=== PATIENT | male | born 1990 | race African-American/Black ===

== ENCOUNTER 2018-08-19 18:23 | Emergency (ER) | payer SELFPAY ==
[~2018-08-19] VITALS: Ht 167.6 cm; Wt 90.7 kg
[2018-08-19 18:34] VITALS: BP 132/65
--- NOTE | 2018-08-19 18:37 | PHYS DOC ---
Past Medical History Past Medical History: Asthma Past Surgical History: No Surgical History Alcohol Use: None Drug Use: None Adult General Chief Complaint Chief Complaint: ASTHMA HPI HPI Patient is a 27 year old male who presents with asthma exacerbation. Patient has had worsening symptoms over the last 48 hours. He describes some dyspnea which she states is typical for his asthma symptoms. He does not have any of his normal albuterol solution at home because he is out of the medication. He presents to the ER with worsening symptoms today. Patient has never been intubated or admitted for his asthma. Denies fever or chills. No myalgias. He does have a cough which she describes to be dry. Review of Systems Review of Systems Constitutional: Denies fever Eyes: Denies change in visual acuity HENT: Denies nasal congestion Respiratory: as documented above GI: Denies abdominal pain, nausea, vomiting, bloody stools : Denies dysuria or hematuria Musculoskeletal: Denies back pain Integument: Denies rash or skin lesions Neurologic: Denies headache, focal weakness or sensory changes Endocrine: Denies polyuria All other systems were reviewed and found to be within normal limits, except as documented in this note. Current Medications Current Medications Current Medications Medications (Trade) Dose Ordered Sig/Dom Start Time Stop Time Status Last Admin Dose Admin Albuterol Sulfate (Ventolin Neb Soln) 2.5 mg 1X ONCE 08/19/18 19:30 08/19/18 19:31 DC 08/19/18 19:34 2.5 MG Albuterol/ Ipratropium (Duoneb) 3 ml 1X ONCE 08/19/18 18:45 08/19/18 18:46 DC 08/19/18 18:49 3 ML Prednisone (Prednisone) 50 mg 1X ONCE 08/19/18 18:45 08/19/18 18:46 DC 08/19/18 18:53 50 MG Allergies Allergies Allergies Coded Allergies Type Severity Reaction Last Updated Verified No Known Drug Allergies 05/31/14 No Physical Exam Physical Exam Constitutional: Well developed, well nourished, no acute distress HENT: Normocephalic, atraumatic, bilateral external ears normal, oropharynx moist Eyes: PERRLA, EOMI, conjunctiva normal Neck: Normal range of motion Cardiovascular:Heart rate regular rhythm, no murmur Lungs & Thorax: Scattered wheezes bilaterally with prolonged expiratory phase. No acute dyspnea. Abdomen: Bowel sounds normal, soft, no tenderness Skin: Warm, dry, no erythema, no rash Neurologic: Alert and oriented X 3 Current Patient Data Vital Signs Vital Signs Date Time Temp Pulse Resp B/P (MAP) Pulse Ox O2 Delivery O2 Flow Rate FiO2 08/19/18 19:34 Room Air 08/19/18 18:50 97 08/19/18 18:34 98.9 107 20 132/65 (87) 98.9 EKG EKG [] Radiology/Procedures Radiology/Procedures [] Course & Med Decision Making Course & Med Decision Making Pertinent Labs and Imaging studies reviewed. (See chart for details) 18:35: Patient seen and examined. Nebulized duoneb and prednisone ordered. 19:42: Patient was given 2 albuterol nebulized treatments in the ER. His lungs are currently clear. He is discharged home with a refill of his albuterol nebulized solution as well as a 5 day course of prednisone. Patient is advised to come back to the ER for any new or worsening symptoms. Dragon Disclaimer Dragon Disclaimer This electronic medical record was generated, in whole or in part, using a voice recognition dictation system. Departure Departure Disposition: HOME, SELF-CARE Condition: GOOD Referrals: NO PCP (PCP) Scripts Albuterol Sulfate (ALBUTEROL SULFATE NEB SOLN) 2.5 Mg/3 Ml Vial.neb 1 VIAL NEB PRN Q4HRS, #50 VIAL Prov: MAR WILLIS DO 08/19/18 Prednisone (PREDNISONE) 50 Mg Tablet 1 TAB PO DAILY, #5 TAB Prov: MAR WILLIS DO 08/19/18 MAR WILLIS DO Aug 19, 2018 18:37
[2018-08-19] MEDS ORDERED: predniSONE 10 MG TABLET PO ONE (18:45)
[2018-08-19] MEDS ORDERED: IPRATRPIUM/ALBUTEROL 0.5/2.5MG 3 ML NEBU. NEB ONE (18:45)
[2018-08-19] MEDS ORDERED: ALBU2.5V5 NEB (19:28)
[2018-08-19] MEDS ORDERED: PRED50TA PO (19:28)
[2018-08-19] MEDS ORDERED: ALBUTEROL SULFATE 2.5 MG/3 ML NEBU. NEB ONE (19:30)
== END 2018-08-19 19:44 | disposition home or self-care (01) ==
LOC: ER 18:23
DX: J45.901 Unspecified asthma with (acute) exacerbation (principal)
CPT/HCPCS: 94640; 99284; J7512; J7613; J7620

== ENCOUNTER 2019-07-14 08:44 | Emergency (ER) | payer BC ==
[~2019-07-14] VITALS: Ht 167.6 cm; Wt 93.0 kg
[~2019-07-14 08:44] MED LIST: ALBU2.5V5 NEB; PRED50TA PO
[2019-07-14 08:57] VITALS: BP 142/72
[2019-07-14] MEDS ORDERED: ALBUTEROL SULFATE 2.5 MG/3 ML NEBU. ONE (09:22)
[2019-07-14] MEDS ORDERED: IPRATRPIUM/ALBUTEROL 0.5/2.5MG 3 ML NEBU. ONE (09:22)
[2019-07-14] MEDS ORDERED: METH4TAB2 PO (09:36)
[2019-07-14] MEDS ORDERED: BENZ100C PO (09:36)
[2019-07-14] MEDS ORDERED: ALBU2.5V5 NEB (09:36)
[2019-07-14] MEDS ORDERED: ALBU2.5V8 IH (09:36)
[2019-07-14] MEDS ORDERED: AZIT250T PO (09:36)
--- NOTE | 2019-07-14 09:36 | PHYS DOC ---
Past Medical History Past Medical History: Asthma Past Surgical History: No Surgical History Alcohol Use: None Drug Use: None Adult General Chief Complaint Chief Complaint: ASTHMA HPI HPI Patient is a 28 year old male patient with history of asthma who presents with complaining of cough and shortness of breath. Patient states he has had intermittent episodes of cough and shortness of breath for the last 2 weeks with improvement of his symptoms with taking her home inhaler but for the last 2 days he ran out of his inhaler and his shortness of breath getting worse. Patient denies fever and chills, productive cough, chest pain, myalgia. Review of Systems Review of Systems Constitutional: Denies fever or chills [] Eyes: Denies change in visual acuity, redness, or eye pain [] HENT: Denies nasal congestion or sore throat [] Respiratory: Reports cough and shortness of Cardiovascular: No additional information not addressed in HPI [] GI: Denies abdominal pain, nausea, vomiting, bloody stools or diarrhea [] : Denies dysuria or hematuria [] Musculoskeletal: Denies back pain or joint pain [] Integument: Denies rash or skin lesions [] Neurologic: Denies headache, focal weakness or sensory changes [] Endocrine: Denies polyuria or polydipsia [] All other systems were reviewed and found to be within normal limits, except as documented in this note. Current Medications Current Medications Current Medications Medications (Trade) Dose Ordered Sig/Dom Start Time Stop Time Status Last Admin Dose Admin Albuterol Sulfate (Ventolin Neb Soln) 2.5 mg STK-MED ONCE 07/14/19 09:22 07/14/19 09:22 DC Albuterol/ Ipratropium (Duoneb) 3 ml STK-MED ONCE 07/14/19 09:22 07/14/19 09:22 DC Allergies Allergies Allergies Coded Allergies Type Severity Reaction Last Updated Verified No Known Drug Allergies 05/31/14 No Physical Exam Physical Exam Constitutional: Well developed, well nourished, no acute distress, non-toxic appearance. [] HENT: Normocephalic, atraumatic, bilateral external ears normal, oropharynx moist, no oral exudates, nose normal. [] Eyes: PERRLA, EOMI, conjunctiva normal, no discharge. [] Neck: Normal range of motion, no tenderness, supple, no stridor. [] Cardiovascular:Heart rate regular rhythm, no murmur [] Lungs & Thorax: Bilateral breath sounds clear to auscultation [] Abdomen: Bowel sounds normal, soft, no tenderness, no masses, no pulsatile masses. [] Skin: Warm, dry, no erythema, no rash. [] Back: No tenderness, no CVA tenderness. [] Extremities: No tenderness, no cyanosis, no clubbing, ROM intact, no edema. [] Neurologic: Alert and oriented X 3, normal motor function, normal sensory function, no focal deficits noted. [] Psychologic: Affect normal, judgement normal, mood normal. [] Current Patient Data Vital Signs Vital Signs Date Time Temp Pulse Resp B/P (MAP) Pulse Ox O2 Delivery O2 Flow Rate FiO2 07/14/19 10:09 92 18 99 Room Air 07/14/19 08:57 98.7 142/72 (95) 98.7 EKG EKG [] Radiology/Procedures Radiology/Procedures [] Course & Med Decision Making Course & Med Decision Making Evaluation of patient in ER showed 28-year-old male patient with history of asthma and currently smoking and complaining of episodes of shortness of breath and cough for 2 weeks that getting worse after he ran out of his inhaler. Patient had unremarkable physical exam. Plan discharge patient home to diagnose of asthma attack and refill of his medication and Medrol Dosepak. Dragon Disclaimer Dragon Disclaimer This electronic medical record was generated, in whole or in part, using a voice recognition dictation system. Departure Departure Impression: Primary Impression: Asthma attack Disposition: HOME, SELF-CARE (At 0933) Condition: IMPROVED Referrals: NO PCP (PCP) Patient Instructions: Asthma, Adult, Smoking Cessation, Tips For Success Additional Instructions: Drink plenty of liquids Follow-up with your primary care physician in 3-5 days Return to ER if not getting better Scripts Azithromycin (ZITHROMAX) 250 Mg Tablet 250 MG PO DAILY for ANTI-BIOTIC, #6 TAB 0 Refills Take 2 pills by mouth for the first day and then Take 1 pill by mouth every 24 hours for the next 4 days Prov: THEO KELLEY MD 07/14/19 Benzonatate (TESSALON PERLE) 100 Mg Capsule 1 CAP PO TID for cough, #21 CAP Prov: THEO KELLEY MD 07/14/19 Albuterol Sulfate (PROAIR HFA INHALER) 8.5 Gm Hfa.aer.ad 2 PUFF IH PRN Q4-6HRS PRN for wheezing for 21 Days, #1 INHALER 0 Refills Prov: THEO KELLEY MD 07/14/19 Methylprednisolone (MEDROL) 4 Mg Tab.ds.pk 1 PKG PO UD for inflammation, #1 PKG Prov: THEO KELLEY MD 07/14/19 Albuterol Sulfate (ALBUTEROL SULFATE NEB SOLN) 2.5 Mg/3 Ml Vial.neb 1 VIAL NEB Q6HRS PRN for SHORTNESS OF BREATH, #25 VIAL Prov: THEO KELLEY MD 07/14/19 Problem Qualifiers Primary Impression: Asthma attack Asthma severity: mild Asthma persistence: unspecified Qualified Codes: J45.901 - Unspecified asthma with (acute) exacerbation THEO KELLEY MD Jul 14, 2019 09:36
== END 2019-07-14 10:09 | disposition home or self-care (01) ==
LOC: ER 08:44
DX: J45.901 Unspecified asthma with (acute) exacerbation (principal)
CPT/HCPCS: 94640; 99283

== ENCOUNTER 2019-07-31 08:37 | Emergency (ER) | payer BC ==
[~2019-07-31] VITALS: Ht 170.2 cm; Wt 93.0 kg
[~2019-07-31 08:37] MED LIST changes: +ALBU2.5V8 IH; +AZIT250T PO; +BENZ100C PO; +METH4TAB2 PO
[2019-07-31] MEDS ORDERED: IV NORMAL SALINE 1000ML BAG 1,000 ML IV ONE (09:00)
[2019-07-31] MEDS ORDERED: methylPREDNISolone SOD SUCC PF 125 MG/2 ML VIAL. IV ONE (09:00)
[2019-07-31] MEDS ORDERED: ONDANSETRON PF 4 MG/2 ML VIAL. IVP ONE (09:00)
[2019-07-31] MEDS ORDERED: MORPHINE SULFATE 10 MG/ML VIAL. IV ONE (09:00)
--- NOTE | 2019-07-31 09:04 | PHYS DOC ---
Past Medical History Past Medical History: Asthma Past Surgical History: No Surgical History Alcohol Use: None Drug Use: None Adult General Chief Complaint Chief Complaint: SHORTNESS OF BREATH HPI HPI Patient is a 28 year old male with history of asthma who presents with flulike symptoms with sore throat, fever, sore body aches starting yesterday and shortness of breath with wheezing starting last evening. Patient is required inhaler use. Reports dyspnea with exertion. No chest pain. Chest tightness. No other acute symptoms or complaints.[] Review of Systems Review of Systems Review of symptoms as per history of present illness. All other review symptoms are negative. All other systems were reviewed and found to be within normal limits, except as documented in this note. Current Medications Current Medications Current Medications Medications (Trade) Dose Ordered Sig/Dom Start Time Stop Time Status Last Admin Dose Admin Albuterol/ Ipratropium (Duoneb) 3 ml 1X ONCE 07/31/19 10:15 07/31/19 10:16 DC 07/31/19 10:13 3 ML Methylprednisolone Sodium Succinate (SOLU-Medrol 125MG VIAL) 125 mg 1X ONCE 07/31/19 09:00 07/31/19 09:01 DC 07/31/19 09:33 125 MG Morphine Sulfate (Morphine Sulfate) 5 mg 1X ONCE 07/31/19 09:00 07/31/19 09:01 DC 07/31/19 09:34 5 MG Ondansetron HCl (Zofran) 4 mg 1X ONCE 07/31/19 09:00 07/31/19 09:01 DC 07/31/19 09:32 4 MG Sodium Chloride 1,000 ml @ 1,000 mls/hr 1X ONCE 07/31/19 09:00 07/31/19 09:59 DC 07/31/19 09:27 1,000 MLS/HR Allergies Allergies Allergies Coded Allergies Type Severity Reaction Last Updated Verified No Known Drug Allergies 05/31/14 No Physical Exam Physical Exam Constitutional: Acutely ill appearing, appears uncomfortable.[] HENT: Normocephalic, atraumatic, bilateral external ears normal, oropharynx moist, no oral exudates, nose normal. [] Eyes: PERRLA, EOMI, conjunctiva normal, no discharge. [] Neck: Normal range of motion, no tenderness, supple, tears cervical lymphadenopathy, no meningismus..[] Cardiovascular: Tachycardia. No rhythm[] Lungs & Thorax: Respirations nonlabored, diminished breath sounds bilaterally with faint inspiratory and expiratory wheezes.[] Abdomen: Bowel sounds normal, soft, no tenderness. [] Skin: Appropriate for ethnicity, warm to touch, no rash appreciated[] Back: No tenderness, no CVA tenderness. [] Extremities: No tenderness. [] Neurologic: Alert and oriented X 3, normal motor function, normal sensory function, no focal deficits noted. [] Psychologic: Affect normal, judgement normal, mood normal. [] Current Patient Data Vital Signs Vital Signs Date Time Temp Pulse Resp B/P (MAP) Pulse Ox O2 Delivery O2 Flow Rate FiO2 07/31/19 10:14 96 Room Air 07/31/19 10:04 20 07/31/19 08:42 102.3 103 129/80 (96) 102.3 Lab Values Laboratory Tests Test 07/31/19 08:45 07/31/19 09:20 Influenza Type A Antigen Positive (NEGATIVE) Influenza Type B Antigen Negative (NEGATIVE) White Blood Count 4.7 x10^3/uL (4.0-11.0) Red Blood Count 4.71 x10^6/uL (4.30-5.70) Hemoglobin 13.4 g/dL (13.0-17.5) Hematocrit 40.6 % (39.0-53.0) Mean Corpuscular Volume 86 fL (79-100) Mean Corpuscular Hemoglobin 28 pg (25-35) Mean Corpuscular Hemoglobin Concent 33 g/dL (31-37) Red Cell Distribution Width 13.5 % (11.5-14.5) Platelet Count 275 x10^3/uL (140-400) Neutrophils (%) (Auto) 72 % (31-73) Lymphocytes (%) (Auto) 6 % (24-48) L Monocytes (%) (Auto) 22 % (0-9) H Eosinophils (%) (Auto) 0 % (0-3) Basophils (%) (Auto) 0 % (0-3) Neutrophils # (Auto) 3.4 x10^3/uL (1.8-7.7) Lymphocytes # (Auto) 0.3 x10^3/uL (1.0-4.8) L Monocytes # (Auto) 1.0 x10^3/uL (0.0-1.1) Eosinophils # (Auto) 0.0 x10^3/uL (0.0-0.7) Basophils # (Auto) 0.0 x10^3/uL (0.0-0.2) Platelet Estimate Pending Sodium Level 139 mmol/L (136-145) Potassium Level 3.2 mmol/L (3.5-5.1) L Chloride Level 100 mmol/L (98-107) Carbon Dioxide Level 24 mmol/L (21-32) Anion Gap 15 (6-14) H Blood Urea Nitrogen 8 mg/dL (8-26) Creatinine 1.1 mg/dL (0.7-1.3) Estimated GFR (Cockcroft-Gault) 97.2 BUN/Creatinine Ratio 7 (6-20) Glucose Level 113 mg/dL (70-99) H Calcium Level 8.9 mg/dL (8.5-10.1) Total Bilirubin 0.3 mg/dL (0.2-1.0) Aspartate Amino Transferase (AST) 20 U/L (15-37) Alanine Aminotransferase (ALT) 14 U/L (16-63) L Alkaline Phosphatase 57 U/L (46-116) Total Protein 7.5 g/dL (6.4-8.2) Albumin 3.6 g/dL (3.4-5.0) Albumin/Globulin Ratio 0.9 (1.0-1.7) L Laboratory Tests 07/31/19 09:20 Laboratory Tests 07/31/19 09:20 EKG EKG [] Radiology/Procedures Radiology/Procedures [Chest x-ray: No acute cardiopulmonary disease per radiology report] Course & Med Decision Making Course & Med Decision Making Pertinent Labs and Imaging studies reviewed. (See chart for details) [Flulike illness with mild intermittent asthma exacerbation. Fluids, morphine, steroids and breathing treatment given.] Dragon Disclaimer Dragon Disclaimer This electronic medical record was generated, in whole or in part, using a voice recognition dictation system. Departure Departure Impression: Primary Impression: Influenza A Disposition: 01 HOME, SELF-CARE Condition: IMPROVED Referrals: NO PCP (PCP) Scripts Oseltamivir Phosphate (TAMIFLU) 75 Mg Capsule 1 CAP PO BID, #10 CAP Prov: MARILYN FAROOQ DO 07/31/19 Prednisone (PREDNISONE) 50 Mg Tablet 1 TAB PO DAILY, #5 TAB Prov: MARILYN FAROOQ DO 07/31/19 Albuterol Sulfate (PROAIR HFA INHALER) 8.5 Gm Hfa.aer.ad 2 PUFF IH PRN Q4-6HRS PRN for wheezing for 21 Days, #1 INHALER 0 Refills Prov: MARILYN FAROOQ DO 07/31/19 MARILYN FAROOQ DO Jul 31, 2019 09:04
[2019-07-31 09:21] LABS: INFLUENZA A PATIENT POSITIVE (NEGATIVE); INFLUENZA B PATIENT NEGATIVE (NEGATIVE)
--- NOTE | 2019-07-31 09:23 | RAD ---
EXAM: Chest, single view. HISTORY: Shortness of air. COMPARISON: None. FINDINGS: A frontal view of the chest is obtained. There is no infiltrate, pleural effusion or pneumothorax. The heart is normal in size. IMPRESSION: No acute pulmonary finding. Electronically signed by: Gracie Guerrero MD (07/31/2019 9:20 AM) [facility]
[2019-07-31 09:46] LABS: BASO % 0 % (0-3); EOS % 0 % (0-3); HEMATOCRIT 40.6 % (39.0-53.0); HEMOGLOBIN 13.4 g/dL (13.0-17.5); LYMPH # 0.3 x10^3/uL (1.0-4.8); LYMPH % 6 % (24-48); MEAN CORPUSCULAR HEMOGLOBIN 28 pg (25-35); MEAN CORPUSCULAR HGB CONC 33 g/dL (31-37); MEAN CORPUSCULAR VOLUME 86 fL (79-100); MONO % 22 % (0-9); NEUT # 3.4 x10^3/uL (1.8-7.7); NEUT % 72 % (31-73); PLATELET COUNT 275 x10^3/uL (140-400); RED BLOOD COUNT 4.71 x10^6/uL (4.30-5.70); RED CELL DISTRIBUTION WIDTH 13.5 % (11.5-14.5); WHITE BLOOD COUNT 4.7 x10^3/uL (4.0-11.0)
[2019-07-31 09:53] LABS: CALCIUM 8.9 mg/dL (8.5-10.1); CREATININE 1.1 mg/dL (0.7-1.3); GFR 97.2; POTASSIUM 3.2 mmol/L (3.5-5.1)
[2019-07-31 09:59] LABS: ALBUMIN 3.6 g/dL (3.4-5.0); ALBUMIN/GLOBULIN RATIO 0.9 (1.0-1.7); TOTAL BILIRUBIN 0.3 mg/dL (0.2-1.0); TOTAL PROTEIN 7.5 g/dL (6.4-8.2)
[2019-07-31] MEDS ORDERED: ALBU2.5V8 IH (10:12)
[2019-07-31] MEDS ORDERED: PROM5SYR2 PO (10:12)
[2019-07-31] MEDS ORDERED: PRED50TA PO (10:12)
[2019-07-31] MEDS ORDERED: OSEL75CA PO (10:12)
[2019-07-31] MEDS ORDERED: IPRATRPIUM/ALBUTEROL 0.5/2.5MG 3 ML NEBU. NEB ONE (10:15)
[2019-07-31 10:44] VITALS: BP 131/67
[2019-07-31 11:19] LABS: % BANDS 3 % (0-9); % LYMPHS 7 % (24-48); % MONOS 18 % (0-10); % SEGS 72 % (35-66); PLT ESTIMATE ADEQUATE (ADEQUATE)
== END 2019-07-31 11:48 | disposition home or self-care (01) ==
LOC: ER 08:37
DX: J10.1 Influenza due to other identified influenza virus with other respiratory manifestations (principal); R50.9 Fever, unspecified; R06.00 Dyspnea, unspecified; R06.02 Shortness of breath; J45.909 Unspecified asthma, uncomplicated; Z79.899 Other long term (current) drug therapy
CPT/HCPCS: 36415; 71045; 80053; 85007; 85025; 87804; 94640; 96374; 96375; 99285; J2270; J2405; J2930; J7030; J7620

== ENCOUNTER 2020-02-08 08:32 | Emergency (ER) | payer BC ==
[~2020-02-08] VITALS: Ht 170.2 cm; Wt 94.0 kg
[~2020-02-08 08:32] MED LIST changes: +OSEL75CA PO; +PROM5SYR2 PO
[2020-02-08 08:45] VITALS: BP 148/63
[2020-02-08] MEDS ORDERED: IPRATRPIUM/ALBUTEROL 0.5/2.5MG 3 ML NEBU. NEB ONE (08:45)
[2020-02-08] MEDS ORDERED: methylPREDNISolone SOD SUCC PF 125 MG/2 ML VIAL. IM ONE (08:45)
[2020-02-08] MEDS ORDERED: PRED20TA PO (08:49)
--- NOTE | 2020-02-08 08:50 | PHYS DOC ---
Past Medical History Past Medical History: Asthma Past Surgical History: No Surgical History Smoking Status: Light Tobacco Smoker Alcohol Use: None Drug Use: None General Adult EDM: Chief Complaint: ASTHMA HPI: HPI: Patient is a 29 year old male presenting to the ED with a chief complaint of asthma exacerbation. Patient states that the symptoms are not present for the last 2 days. Patient states that he has been using breathing treatments at home but does not seem to help. Patient denies being an active smoker. Patient denies fever, chills, nausea, vomiting, chest pain. Patient states that since he cannot take the breathing treatments to work he has some difficulty in breathing. Review of Systems: Review of Systems: Constitutional: Denies fever or chills. [] Eyes: Denies change in visual acuity. [] HENT: Denies nasal congestion or sore throat. [] Respiratory: Complains of wheezing and shortness of breath [] Cardiovascular: Denies chest pain or edema. [] GI: Denies abdominal pain, nausea, vomiting, bloody stools or diarrhea. [] Heart Score: Risk Factors: Risk Factors: DM, Current or recent (<one month) smoker, HTN, HLP, family history of CAD, obesity. Risk Scores: Score 0 - 3: 2.5% MACE over next 6 weeks - Discharge Home Score 4 - 6: 20.3% MACE over next 6 weeks - Admit for Clinical Observation Score 7 - 10: 72.7% MACE over next 6 weeks - Early Invasive Strategies Allergies: Allergies: Allergies Coded Allergies Type Severity Reaction Last Updated Verified No Known Drug Allergies 05/31/14 No Physical Exam: PE: Constitutional: Well developed, well nourished, no acute distress, non-toxic appearance. [] HENT: Normocephalic, atraumatic Eyes: EOMI Neck: Normal range of motion, Supple Cardiovascular:Heart rate regular rhythm Lungs & Thorax: Mild bilateral wheezing [] Extremities: No tenderness, ROM intact Neurologic: Alert and oriented X 3 EKG: EKG: [] Radiology/Procedures: Radiology/Procedures: [] Course & Med Decision Making: Course & Med Decision Making Ordered DuoNeb breathing treatments and Solu-Medrol 125 mg IM. On recheck patient's breathing is much improved. Patient was discharged home on oral steroids. Discussed plan of care with patient. Patient is instructed to follow up with PCP in one to 2 days. Appropriate discharge instructions given to patient to return to the ED or to seek immediate medical evaluation. Patient is instructed to return to the ED if symptoms worsen or if any concerns. Gwendolyn Disclaimer: Gwendolyn Disclaimer: This electronic medical record was generated, in whole or in part, using a voice recognition dictation system. Departure Departure Impression: Primary Impression: Asthma exacerbation Disposition: 01 HOME, SELF-CARE Condition: IMPROVED Referrals: NO PCP (PCP) Patient Instructions: Asthma, Adult Additional Instructions: Discussed plan of care with patient. Patient is instructed to follow up with PCP in one to 2 days. Appropriate discharge instructions given to patient to return to the ED or to seek immediate medical evaluation. Patient is instructed to return to the ED if symptoms worsen or if any concerns. Scripts Prednisone (PREDNISONE) 20 Mg Tablet 2 TAB PO DAILY for 5 Days, #10 TAB Prov: RORY GARRIDO DO 02/08/20 Justicifation of Admission Dx: Justifications for Admission: Justification of Admission Dx: RORY Razo DO Feb 08, 2020 08:50
== END 2020-02-08 10:31 | disposition home or self-care (01) ==
LOC: ER 08:32
DX: J45.901 Unspecified asthma with (acute) exacerbation (principal); R06.02 Shortness of breath; Z87.891 Personal history of nicotine dependence
CPT/HCPCS: 96372; 99283; J2930

== ENCOUNTER 2020-06-06 07:20 | Emergency (ER) | payer BC ==
[~2020-06-06] VITALS: Ht 170.2 cm; Wt 90.9 kg
[~2020-06-06 07:20] MED LIST changes: +PRED20TA PO
[2020-06-06 07:30] VITALS: BP 130/72
--- NOTE | 2020-06-06 07:46 | PHYS DOC ---
Past Medical History Past Medical History: Asthma Past Surgical History: No Surgical History Smoking Status: Light Tobacco Smoker Alcohol Use: None Drug Use: None General Adult EDM: Chief Complaint: INSECT BITE HPI: HPI: Patient is a 29 year old male present to ER for evaluation of insect bite on the back of his neck started yesterday. Patient denies any chest pain, no trouble breathing, no nausea vomiting. Patient said yesterday at work. Coworker noticed a spider on his neck. he swiped it off. Then this morning, he woke up with pain on the back on his neck with a swollen lesion. Patient denies any fever. Review of Systems: Review of Systems: Constitutional: Denies fever or chills. [] Eyes: Denies change in visual acuity. [] HENT: Denies nasal congestion or sore throat. [] Respiratory: Denies cough or shortness of breath. [] Cardiovascular: Denies chest pain or edema. [] GI: Denies abdominal pain, nausea, vomiting, bloody stools or diarrhea. [] : Denies dysuria. [] Musculoskeletal: Denies back pain or joint pain. [] Integument: Positive for skin lesion rash on neck Neurologic: Denies headache, focal weakness or sensory changes. [] Endocrine: Denies polyuria or polydipsia. [] Lymphatic: Denies swollen glands. [] Psychiatric: Denies depression or anxiety. [] Heart Score: Risk Factors: Risk Factors: DM, Current or recent (<one month) smoker, HTN, HLP, family history of CAD, obesity. Risk Scores: Score 0 - 3: 2.5% MACE over next 6 weeks - Discharge Home Score 4 - 6: 20.3% MACE over next 6 weeks - Admit for Clinical Observation Score 7 - 10: 72.7% MACE over next 6 weeks - Early Invasive Strategies Allergies: Allergies: Allergies Coded Allergies Type Severity Reaction Last Updated Verified No Known Drug Allergies 05/31/14 No Physical Exam: PE: Constitutional: Well developed, well nourished, no acute distress, non-toxic appearance. [] HENT: Normocephalic, atraumatic, bilateral external ears normal, oropharynx moist, no oral exudates, nose normal. [] Eyes: PERRLA, EOMI, conjunctiva normal, no discharge. [] Neck: Normal range of motion, no tenderness, supple, no stridor. [] Cardiovascular:Heart rate regular rhythm, no murmur [] Lungs & Thorax: Bilateral breath sounds clear to auscultation [] Abdomen: Bowel sounds normal, soft, no tenderness, no masses, no pulsatile masses. [] Skin: Warm, dry, there is a quarter size tender, indurated lesion on back of neck. [] Back: No tenderness, no CVA tenderness. [] Extremities: No tenderness, no cyanosis, no clubbing, ROM intact, no edema. [] Neurologic: Alert and oriented X 3, normal motor function, normal sensory function, no focal deficits noted. [] Psychologic: Affect normal, judgement normal, mood normal. [] Current Patient Data: Vital Signs: Vital Signs Date Time Temp Pulse Resp B/P (MAP) Pulse Ox O2 Delivery O2 Flow Rate FiO2 06/06/20 07:30 96.7 75 16 130/72 (91) 99 Room Air 96.7 EKG: EKG: [] Radiology/Procedures: Radiology/Procedures: [] Course & Med Decision Making: Course & Med Decision Making Pertinent Labs and Imaging studies reviewed. (See chart for details) [] Dragon Disclaimer: Boyaa Interactive Disclaimer: This electronic medical record was generated, in whole or in part, using a voice recognition dictation system. Departure Departure Impression: Primary Impression: Insect bite Disposition: 01 DC HOME SELF CARE/HOMELESS Condition: STABLE Referrals: NO PCP (PCP) follow up with your doctor in a couple day for reevaluation Patient Instructions: Insect Bite Additional Instructions: Thank you for visiting our Emergency Department. We appreciate you trusting us with your care. If any additional problems come up don't hesitate to return to visit us. Please follow up with your primary care provider so they can plan additional care if needed and know about the problem that you had. If symptoms worsen come back to the Emergency Department. Any concerning symptoms that start such as chest pain, shortness of air, weakness or numbness on one side of the body, running high fevers or any other concerning symptoms return to the ER. Scripts Prednisone (PREDNISONE) 20 Mg Tablet 2 TAB PO DAILY for 7 Days, #14 TAB Prov: JOSE CRUZ WATKINS DO 06/06/20 Cephalexin (KEFLEX) 500 Mg Capsule 500 MG PO QID for 10 Days, #40 CAP Prov: JOSE CRUZ WATKINS DO 06/06/20 JOSE CRUZ WATKINS DO Jun 06, 2020 07:46
[2020-06-06] MEDS ORDERED: CEPH-264 PO (07:50)
[2020-06-06] MEDS ORDERED: PRED20TA PO (07:50)
== END 2020-06-06 07:54 | disposition home or self-care (01) ==
LOC: ER 07:20
DX: S10.96XA Insect bite of unspecified part of neck, initial encounter (principal); J45.909 Unspecified asthma, uncomplicated; Z72.0 Tobacco use; W57.XXXA Bitten or stung by nonvenomous insect and other nonvenomous arthropods, initial encounter; Y93.89 Activity, other specified; Y92.89 Other specified places as the place of occurrence of the external cause; Y99.8 Other external cause status
CPT/HCPCS: 99283

== ENCOUNTER 2020-11-09 05:52 | Emergency (ER) | payer BC ==
[~2020-11-09] VITALS: Ht 167.6 cm; Wt 93.2 kg
[~2020-11-09 05:52] MED LIST changes: +CEPH-264 PO
[2020-11-09] MEDS ORDERED: VENTOLIN HFA18 GM INH (06:27)
[2020-11-09] MEDS ORDERED: PRED50TA PO (06:27)
--- NOTE | 2020-11-09 06:28 | ED.ADGEN ---
Past Medical History Past Medical History: Asthma Past Surgical History: No Surgical History Smoking Status: Light Tobacco Smoker Alcohol Use: None Drug Use: None General Adult EDM: Chief Complaint: ASTHMA HPI: HPI: Patient is a 30-year-old male with past medical history of asthma who presents to the emergency room complaining of an asthma exacerbation. Patient states that yesterday he got winded at work and started having wheezing. He has had a dry cough and dry throat. He states this feels exactly like previous asthma exacerbations. He states he has 1 every spring when the weather changes and there starts to be pollen. He has never had to be intubated for asthma. He is able to do his normal activities. He states his work will not let him come back until he has been evaluated. He denies any kind of fever. He does not have URI symptoms. Review of Systems: Review of Systems: Complete ROS is negative unless otherwise documented in HPI Current Medications: Current Medications Medications (Trade) Dose Ordered Sig/Dom Start Time Stop Time Status Last Admin Dose Admin Albuterol Sulfate (Ventolin Neb Soln) 2.5 mg 1X ONCE 11/09/20 06:30 11/09/20 06:31 DC 11/09/20 06:30 2.5 MG Prednisone (Prednisone) 50 mg 1X ONCE 11/09/20 06:30 11/09/20 06:31 DC 11/09/20 06:33 50 MG Allergies: Allergies: Allergies Coded Allergies Type Severity Reaction Last Updated Verified No Known Drug Allergies 05/31/14 No Physical Exam: PE: General: Awake, alert, NAD. Well Nourished, well hydrated. Cooperative HEENT: Atraumatic, EOMI, PERRL, airway patent, moist oral mucosa Neck: Supple, trachea midline Respiratory: Normal effort, no retractions, minimal diffuse expiratory wheezing CV: RRR, no murmur, cap refill <2 GI: Soft, nondistended, nontender, no masses MSK: No obvious deformities Skin: Warm, dry, intact Neuro: A&O x3, speech NL, sensory and motor grossly intact, no focal deficits Psych: Normal affect, normal mood, not suicidal or homicidal Current Patient Data: Vital Signs: Vital Signs Date Time Temp Pulse Resp B/P (MAP) Pulse Ox O2 Delivery O2 Flow Rate FiO2 11/09/20 06:56 94 18 116/70 (85) 99 Room Air 11/09/20 06:00 98.0 98.0 EKG: EKG: [] Heart Score: C/O Chest Pain: N/A Risk Factors: Risk Factors: DM, Current or recent (<one month) smoker, HTN, HLP, family history of CAD, obesity. Risk Scores: Score 0 - 3: 2.5% MACE over next 6 weeks - Discharge Home Score 4 - 6: 20.3% MACE over next 6 weeks - Admit for Clinical Observation Score 7 - 10: 72.7% MACE over next 6 weeks - Early Invasive Strategies Radiology/Procedures: Radiology/Procedures: [] Course & Med Decision Making: Course & Med Decision Making Pertinent Labs and Imaging studies reviewed. (See chart for details) Patient is a 30-year-old with a history of asthma who presents the emergency room complaining of shortness of breath, wheezing, and chest tightness. Presentation is concerning for an acute asthma exacerbation. Upon arrival to the Emergency Room, patient is not requiring oxygen. Chest x-ray was ordered to rule out any signs of pneumonia. Upon reevaluation, patient has improved. Patient does not need magnesium at this time. He will be placed on prednisone and given an inhaler. Patient's test results and vitals while in the ED were fully reviewed and discussed with the patient. Patient is stable and at this time does not need admission to the hospital. We have discussed strict return precautions and the importance of following up with their Primary Care Physician. Patient stated understanding and was given an opportunity to ask any questions. Patient is in agreement with plan. Gwendolyn Disclaimer: Gwendolyn Disclaimer: This electronic medical record was generated, in whole or in part, using a voice recognition dictation system. Departure Departure Impression: Primary Impression: Asthma exacerbation Disposition: DC HOME SELF CARE/HOMELESS Condition: IMPROVED Referrals: NO PCP (PCP) Patient Instructions: Asthma Prevention-Brief Scripts Prednisone (PREDNISONE) 50 Mg Tablet 1 TAB PO DAILY, #5 TAB Prov: RACHNA FISHER MD 11/09/20 Albuterol Sulfate (VENTOLIN HFA INHALER) 18 Gm Hfa.aer.ad 2 PUFF INH QID for FOR ASTHMA, #1 INHALER 0 Refills Prov: RACHNA FISHER MD 11/09/20 RACHNA FISHER MD Nov 09, 2020 06:28
[2020-11-09] MEDS ORDERED: predniSONE 10 MG TABLET PO ONE (06:30)
[2020-11-09] MEDS ORDERED: ALBUTEROL SULFATE 2.5 MG/3 ML NEBU. NEB ONE (06:30)
--- NOTE | 2020-11-09 06:36 | RAD ---
XR CHEST 1V Clinical Indication: Reason: sob / Spl. Instructions: / History: Comparison: AP chest July 31, 2019. Findings: The cardiomediastinal silhouette is normal. Lungs are clear. There is no pneumothorax. No pleural eff usion is appreciated. No acute bone abnormality. IMPRESSION: No acute cardiopulmonary process. Electronically signed by: Mynor Bhatia MD (11/09/2020 6:33 AM) [facility]ENTERCarol[facility]
[2020-11-09 06:56] VITALS: BP 116/70
--- NOTE | 2020-11-10 02:46 | EKG ---
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
--- NOTE | 2020-11-10 02:49 | EKG ---
[facility] [address] [place] [address] Test Date: 2020-11-09 Test Time: 06:00:16 Pat Name: QUINTON FIERRO Department: Room: Gender: M President [employer]ing: : 1990 Requested By: RACHNA FISHER Order Number: [id number] Reading MD: Measurements Intervals [place] Rate: 91 P: 53 NC: 142 QRS: 55 QRSD: 92 T: 62 QT: 354 QTc: 437 Interpretive Statements SINUS RHYTHM OTHERWISE NORMAL ECG RI6.02 Compared to ECG 11/09/2020 05:59:12 Supraventricular rhythm no longer present T-wave abnormality no longer present Possible ischemia no longer present
--- NOTE | 2020-11-10 02:56 | EKG ---
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
--- NOTE | 2020-11-22 13:31 | EKG ---
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
--- NOTE | 2020-11-22 13:32 | EKG ---
[facility] [address] [place] [address] Test Date: 2020-11-09 Test Time: 06:01:34 Pat Name: QUINTON FIERRO Department: Room: Gender: M Study Specialist: : 1990 Requested By: RACHNA FISHER Order Number: [id number] Reading MD: Measurements Intervals [place] Rate: 66 P: 46 AR: 154 QRS: 53 QRSD: 94 T: 32 QT: 358 QTc: 377 Interpretive Statements SINUS RHYTHM NORMAL ECG RI6.02 Compared to ECG 11/09/2020 06:00:16 No significant changes
--- NOTE | 2020-11-22 13:32 | EKG ---
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
== END 2020-11-09 07:17 | disposition home or self-care (01) ==
LOC: ER 05:52
DX: J45.901 Unspecified asthma with (acute) exacerbation (principal); R05 Cough; J39.2 Other diseases of pharynx; Z87.891 Personal history of nicotine dependence
CPT/HCPCS: 71045; 93005; 94640; 99283; J7512; J7613

== ENCOUNTER 2021-01-07 08:24 | Emergency (ER) | payer BC ==
[~2021-01-07] VITALS: Ht 167.6 cm; Wt 90.9 kg
[~2021-01-07 08:24] MED LIST changes: +VENTOLIN HFA18 GM INH
[2021-01-07 08:30] VITALS: BP 135/70
[2021-01-07] MEDS: DEXAMETHASONE 4 MG TABLET PO ONE (08:44)
[2021-01-07] MEDS: IPRATRPIUM/ALBUTEROL 0.5/2.5MG 3 ML NEBU. NEB ONE (08:49)
--- NOTE | 2021-01-07 08:49 | PHYS DOC ---
Past Medical History Past Medical History: Asthma Past Surgical History: No Surgical History Smoking Status: Current Every Day Smoker Alcohol Use: Rarely Drug Use: None General Adult EDM: Chief Complaint: ASTHMA HPI: HPI: 30-year-old male past medical history of asthma presents the ED with complaints of shortness of breath and dry cough that started last night, some relief with albuterol inhaler. Reports recent asthma exacerbation that he was seen for in the ED he believes he may. EMR was reviewed and patient was seen November 09 for his asthma given prednisone and Ventolin. Patient does have insurance but no primary care physician is asking for referrals. No known history of Covid. Had difficulties breathing at work today. Declines Covid testing and is questioning vaccination. No history of hospitalizations or admissions for his asthma-no history of intubations. Review of Systems: Review of Systems: Constitutional: Denies fever or chills. [] Eyes: Denies change in visual acuity. [] HENT: Denies nasal congestion or sore throat. [] Respiratory: Denies hemoptysis, increased work of breathing or productive cough Cardiovascular: Denies chest pain or edema. [] GI: Denies abdominal pain, nausea, vomiting, bloody stools or diarrhea. [] : Denies dysuria or hematuria Musculoskeletal: Denies back pain or joint pain. [] Integument: Denies rash or diaphoresis Neurologic: Denies headache, focal weakness or sensory changes. [] Endocrine: Denies polyuria or polydipsia. [] Lymphatic: Denies swollen glands. [] Psychiatric: Denies depression or anxiety. [] Heart Score: C/O Chest Pain: No Risk Factors: Risk Factors: DM, Current or recent (<one month) smoker, HTN, HLP, family history of CAD, obesity. Risk Scores: Score 0 - 3: 2.5% MACE over next 6 weeks - Discharge Home Score 4 - 6: 20.3% MACE over next 6 weeks - Admit for Clinical Observation Score 7 - 10: 72.7% MACE over next 6 weeks - Early Invasive Strategies Current Medications: Current Medications Medications (Trade) Dose Ordered Sig/Dom Start Time Stop Time Status Last Admin Dose Admin Albuterol/ Ipratropium (Duoneb) 9 ml 1X ONCE 01/07/21 08:45 01/07/21 08:46 UNV Dexamethasone (Decadron) 10 mg 1X ONCE 01/07/21 08:45 01/07/21 08:46 UNV 01/07/21 08:44 10 MG Allergies: Allergies: Allergies Coded Allergies Type Severity Reaction Last Updated Verified No Known Drug Allergies 05/31/14 No Physical Exam: PE: Constitutional: Well developed, well nourished, no acute distress, non-toxic appearance. HENT: Normocephalic, atraumatic, Eyes: EOMI, conjunctiva normal, no discharge. Neck: Normal range of motion, supple, Cardiovascular: S1/2 present, regular rhythm Lungs & Thorax: Speaking in full sentences, bilateral equal chest rise, no tachypnea or increased work of breathing, no hypoxia, mild to moderate expirato ry wheezing but no retractions/stridor/Tachypnea Abdomen: soft, no tenderness, Skin: Warm, dry, no erythema, no rash. [] Extremities: No tenderness, no cyanosis, no lower extremity edema Neurologic: Alert and oriented X 3, normal motor function, normal sensory function, no focal deficits noted. [] Psychologic: Affect normal, judgement normal, mood normal. [] Current Patient Data: Vital Signs: Vital Signs Date Time Temp Pulse Resp B/P (MAP) Pulse Ox O2 Delivery O2 Flow Rate FiO2 01/07/21 08:30 98.0 90 16 135/70 (91) 99 Room Air 98.0 EKG: EKG: [] Radiology/Procedures: Radiology/Procedures: [] Impression: PERC rule for pulmonary embolus 0 criteria No need for further workup, as <2% chance of PE. If no criteria are positive and clinicians pre-test probability is <15%, PERC Rule criteria are satisfied. Course & Med Decision Making: Course & Med Decision Making Pertinent Labs and Imaging studies reviewed. (See chart for details) Concern for very mild asthma exacerbation in a well-appearing male, speaking full sentences, afebrile. No rales or crackles on lung sounds. Reports his symptoms resemble asthma. PERC rule negative. No active chest pain. Patient educated on risks of poorly controlled asthma and need for routine outpatient care. Will discharge home with prednisone, Flovent and Ventolin. Will discharge home with strict ED return precautions were given for increased work of breathing, fever, hemoptysis, retractions, chest pain or syncope. Encouraged urgent outpatient follow-up with PMD and pulmonology for definitive management. Life-threatening processes were considered but are low suspicion at this time, given history, physical exam and ED workup. Pt was educated on all prescription medications and adverse effects. All patient's questions were answered and pt was stable at time of discharge. Life/limb-threatening differential includes but is not limited to, ACS, dysrhythmia, pneumothorax or hemothorax, pulmonary embolus, pneumonia, bronchoconstriction, pulmonary edema, angioedema, epiglottitis, tracheitis, Canelo's angina, RPA/DESKTOP TECHNICIAN, anaphylaxis, angioedema, cardiac tamponade or murmurs, pericarditis, myocarditis, poisoning or toxicity, sepsis or autoimmune/neurologic disease. I spoken with the patient and her caregivers. I explained the patient's condition, diagnoses and treatment plan based on the information available to me at this time. I have answered the patient and her caregiver's questions and addressed any concerns. The patient and her caregivers have a good understanding of patient's diagnosis, condition and treatment plan as can be expected at this point. Vital signs have been stable. Patient's condition is stable and appropriate for discharge from the emergency department. Patient will pursue further outpatient evaluation with primary care physician or other designated or consulting physician as outlined in the discharge instructions. The patient and/or caregivers are agreeable to this plan of care and follow-up instructions have been explained in detail. The patient and/or caregivers have received these instructions in written form and have expressed an understanding of the discharge instructions. The patient and/or caregivers are aware that any significant change of condition or worsening of symptoms should prompt immediate return to this or the closest emergency department or call to 911. Gwendolyn Disclaimer: Gwendolyn Disclaimer: This electronic medical record was generated, in whole or in part, using a voice recognition dictation system. Departure Departure Impression: Primary Impression: Asthma exacerbation Disposition: HOME / SELF CARE / HOMELESS Condition: STABLE Referrals: NO PCP (PCP) Follow-up in 24 to 40 hours for reevaluation or FOLLOW UP WITH FAMILY MEDICINE: [address] [place] [address] Patient Instructions: Asthma Attacks, Prevention, Asthma, Adult Additional Instructions: FOLLOW UP WITH PULMONOLOGY: For definitive management [facility] [address] [place] [address] EMERGENCY DEPARTMENT GENERAL DISCHARGE INSTRUCTIONS Thank you for coming to [facility] Emergency Department (ED) today and trusting us with you care. We trust that you had a positive experience in our Emergency Department. If you wish to speak to the department management, you may call the Director at [phone]. YOUR FOLLOW UP INSTRUCTIONS ARE FOLLOWS: 1. Do you have a private Doctor? If you do not have a private doctor, please ask for a resource list of physicians or clinics that may be able to assist you with follow up care. 2. The Emergency Physicain has interpreted your x-rays. The X-Ray specialist will also review them. If there is a change in the findings, you will be notified in 48 hours when at all possible. 3. A lab test or culture has been done, your results will be reviewed and you will be notified if you need a change in treatment. ADDITIONAL INSTRUCTIONS AND INFORMATION: 1. Your care today has been supervised by a physician who is specially trained in emergency care. Many problems require more than one evaluation for a complete diagnosis and treatment. We recommend that you schedule your follow up appointment as recommended to ensure complete treatment of you illness or injury. If you are unable to obtain follow up care and continue to have a problem, or if your condition worsens, we recommend that you return to the ED. 2. We are not able to safely determine your condition over the phone nor are we able to give sound medical advice over the phone. For these safety reasons, if you call for medical advice we will ask you to come to the ED for further evaluation. 3. If you have any questions regarding these discharge instructions please call the ED at [phone]. SAFETY INFORMATION: In the interest of safety, wellness, and injury prevention; we encourage you to wear your sealbelt, if you smoke; quite smoking, and we encourage family to use a protective helmet for bicycling and other sporting events that present an increased risk for head injury. IF YOUR SYMPTOMS WORSEN OR NEW SYMPTOMS DEVELOP, OR YOU HAVE CONCERNS ABOUT YOUR CONDITION; OR IF YOUR CONDITION WORSENS WHILE YOU ARE WAITING FOR YOUR FOLLOW UP APPOINTMENT; EITHER CONTACT YOUR PRIMARY CARE DOCTOR, THE PHYSICIAN WHOSE NAME AND NUMBER YOU WERE GIVEN, OR RETURN TO THE ED IMMEDIATELY. Scripts Albuterol Sulfate (VENTOLIN HFA INHALER) 18 Gm Hfa.aer.ad 2 PUFF INH QID for FOR ASTHMA, #1 INHALER 0 Refills Prov: FABY JACQUES DO 01/07/21 Fluticasone Propionate (FLOVENT 44MCG HFA) 10.6 Gm Aer.w.adap 2 PUFF IH BID, #1 INHALER 2 Refills Prov: FABY JACQUES DO 01/07/21 Prednisone (PREDNISONE) 50 Mg Tablet 1 TAB PO DAILY, #5 TAB Prov: FABY JACQUES DO 01/07/21 FABY JACQUES DO January 07, 2021 08:49
[2021-01-07] MEDS ORDERED: VENTOLIN HFA18 GM INH (09:29)
[2021-01-07] MEDS ORDERED: PRED50TA PO (09:29)
[2021-01-07] MEDS ORDERED: FLUT10.6 IH (09:29)
== END 2021-01-07 09:41 | disposition home or self-care (01) ==
LOC: ER 08:24
DX: J45.901 Unspecified asthma with (acute) exacerbation (principal); F17.200 Nicotine dependence, unspecified, uncomplicated
CPT/HCPCS: 94640; 99285

== ENCOUNTER 2021-11-29 09:03 | Emergency (ER) | payer BC ==
[~2021-11-29] VITALS: Ht 167.6 cm; Wt 93.2 kg
[~2021-11-29 09:03] MED LIST changes: +FLUT10.6 IH
[2021-11-29 09:53] VITALS: BP 143/87
[2021-11-29] MEDS ORDERED: DEXAMETHASONE SOD PHOS 20 MG/5 ML VIAL. IM ONE (10:15)
[2021-11-29] MEDS ORDERED: IPRATRPIUM/ALBUTEROL 0.5/2.5MG 3 ML NEBU. NEB ONE (10:15)
--- NOTE | 2021-11-29 10:45 | PHYS DOC ---
Past Medical History Past Medical History: Asthma Past Surgical History: No Surgical History Smoking Status: Current Every Day Smoker Additional Information: 0.25 PPD Alcohol Use: Occasionally Drug Use: None General Adult EDM: Chief Complaint: SORE THROAT HPI: HPI: Patient is a 31 year old male presents to the ER today with a sore throat and chest tightness. Patient states that his asthma is getting worse. Denies any fevers or chills. States that he ran out of his steroids and inhaler. Denies any nausea or vomiting denies any radiation of the chest tightness. Review of Systems: Review of Systems: Constitutional: Denies fever or chills. [] Eyes: Denies change in visual acuity. [] HENT: Sore throat nasal congestion Respiratory: Chest tightness with mild wheezing denies cough or shortness of breath. [] Cardiovascular: Denies chest pain or edema. [] GI: Denies abdominal pain, nausea, vomiting, bloody stools or diarrhea. [] : Denies dysuria. [] Musculoskeletal: Denies back pain or joint pain. [] Integument: Denies rash. [] Neurologic: Denies headache, focal weakness or sensory changes. [] Endocrine: Denies polyuria or polydipsia. [] Lymphatic: Denies swollen glands. [] Psychiatric: Denies depression or anxiety. [] Heart Score: C/O Chest Pain: No Risk Factors: Risk Factors: DM, Current or recent (<one month) smoker, HTN, HLP, family history of CAD, obesity. Risk Scores: Score 0 - 3: 2.5% MACE over next 6 weeks - Discharge Home Score 4 - 6: 20.3% MACE over next 6 weeks - Admit for Clinical Observation Score 7 - 10: 72.7% MACE over next 6 weeks - Early Invasive Strategies Current Medications: Current Medications Medications (Trade) Dose Ordered Sig/Dom Start Time Stop Time Status Last Admin Dose Admin Albuterol/ Ipratropium (Duoneb) 3 ml 1X ONCE 11/29/21 10:15 11/29/21 10:16 DC 11/29/21 10:39 3 ML Dexamethasone Sodium Phosphate (Decadron) 10 mg 1X ONCE 11/29/21 10:15 11/29/21 10:16 DC 11/29/21 10:20 10 MG Allergies: Allergies: Allergies Coded Allergies Type Severity Reaction Last Updated Verified No Known Drug Allergies 10/19/14 No Physical Exam: PE: Constitutional: Well developed, well nourished, no acute distress, non-toxic appearance. [] HENT: Normocephalic, atraumatic, bilateral external ears normal, oropharynx moist, no oral exudates, nose normal. Erythema the posterior pharynx uvula is midline Eyes: PERRLA, EOMI, conjunctiva normal, no discharge. [] Neck: Normal range of motion, no tenderness, supple, no stridor. [] Cardiovascular:Heart rate regular rhythm, no murmur [] Lungs & Thorax: Bibasilar wheezing. Normal respirations. Abdomen: Bowel sounds normal, soft, no tenderness, no masses, no pulsatile masses. [] Skin: Warm, dry, no erythema, no rash. [] Back: No tenderness, no CVA tenderness. [] Extremities: No tenderness, no cyanosis, no clubbing, ROM intact, no edema. [] Neurologic: Alert and oriented X 3, normal motor function, normal sensory function, no focal deficits noted. [] Psychologic: Affect normal, judgement normal, mood normal. [] Current Patient Data: Vital Signs: Vital Signs Date Time Temp Pulse Resp B/P (MAP) Pulse Ox O2 Delivery O2 Flow Rate FiO2 11/29/21 10:40 Room Air 11/29/21 09:53 98.5 96 18 143/87 (105) 97 98.5 EKG: EKG: [] Radiology/Procedures: Radiology/Procedures: [] Impression: Patient was reevaluated and states that he feels way better. Return precautions were discussed. Questions and concerns were addressed patient has albuterol be refilled. Course & Med Decision Making: Course & Med Decision Making Pertinent Labs and Imaging studies reviewed. (See chart for details) [] Dragon Disclaimer: Dragon Disclaimer: This electronic medical record was generated, in whole or in part, using a voice recognition dictation system. Departure Departure Referrals: NO PCP (PCP) PRICILA MENDEZ DO Nov 29, 2021 10:45
[2021-11-29] MEDS ORDERED: ALBU2.5V8 IH (11:24)
== END 2021-11-29 11:37 | disposition home or self-care (01) ==
LOC: ER 09:03
DX: J02.9 Acute pharyngitis, unspecified (principal); J45.909 Unspecified asthma, uncomplicated; F17.200 Nicotine dependence, unspecified, uncomplicated; R07.89 Other chest pain
CPT/HCPCS: 87070; 87880; 94640; 96372; 99283; J1100